=== PATIENT | female | born 1990 | race Caucasian/White ===

== ENCOUNTER 2018-05-04 16:58 | Inpatient (IN) ==
[2018-05-04] MEDS ORDERED: Morphine Inj 4 MG/ML Vial IV.PUSH ONE (17:11)
[2018-05-04] MEDS ORDERED: Sod Chloride 0.9% Inj 1,000 ML IV.SIG SCH (17:15)
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
[2018-05-04] MEDS ORDERED: Midazolam Inj 5 MG/ML 5 ML Vial IV.PUSH ONE (17:26)
[2018-05-04] MEDS ORDERED: Midazolam Inj 5 MG/ML 1 ML Vial ONE (17:42)
[2018-05-04 17:43] LABS: Baso % (Auto) 0.4 % (0.0-2.0); Eos % (Auto) 0.8 % (0.0-4.0); Hematocrit 24.9 % (35.0-46.0); Hemoglobin 8.7 gm/dL (11.6-15.3); Lymph % (Auto) 14.8 % (9.0-44.0); Mean Corpuscular HGB Conc 34.9 % (32.0-36.0); Mean Corpuscular Hemoglobin 33.5 pg (27.0-34.0); Mean Corpuscular Volume 95.9 fL (80.0-100.0); Mean Platelet Volume 9.5 fL (7.0-11.0); Mono # (Auto) 0.4 th/mm3 (0.0-0.9); Mono % (Auto) 5.7 % (0.0-8.0); Neut % (Auto) 78.3 % (16.0-70.0); Platelet Count 106 th/mm3 (150-450); Red Cell Distribution Width 14.4 % (11.6-17.2); White Blood Count 6.4 th/mm3 (4.0-11.0)
[2018-05-04 18:17] LABS: Alanine Aminotransferase 62 U/L (10-53); Albumin 2.8 g/dL (3.4-5.0); Alkaline Phosphatase 37 U/L (45-117); Anion Gap 8 meq/L (5-15); Aspartate Aminotransferase 76 U/L (15-37); Blood Urea Nitrogen 6 mg/dL (7-18); Carbon Dioxide 18.3 meq/L (21.0-32.0); Chloride 121 meq/L (98-107); Glomerular Filtration Rate Greater Than 89 mL/min (>89); Glucose,Random 59 mg/dL (74-106); Sodium 147 meq/L (136-145); Total Protein 4.7 g/dL (6.4-8.2)
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
[2018-05-04] MEDS ORDERED: Calcium Gluconate Inj 1 GM in Dextrose 5% in Water Inj 100 ML IV.SIG ONE ×2 (18:47)
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
[2018-05-04] MEDS ORDERED: Potassium Chlor 20 mEq Premix 20 MEQ/100 ML PIGGYBACK IV.SIG ONE (19:04)
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
[2018-05-04 20:32] LABS: Bacteria,Urine Rare /hpf; Bilirubin,Urine Negative (Negative); Clarity,Urine Hazy (Clear); Color,Urine Yellow (Yellw/Straw); Glucose,Urine (UA) Negative (Negative); Hyaline Casts,Urine 1 /lpf (0-3); Leukocyte Esterase,Urine Negative (Negative); Mucus,Urine Few /lpf (Occasional); Nitrite,Urine Negative (Negative); Specific Gravity,Urine 1.008 (1.002-1.035); Squamous Epithelial Cell,Urine <1 /hpf (0-5)
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
[2018-05-04] MEDS: Morphine Inj 4 MG/ML Vial IV.PUSH PRN (22:51)
[2018-05-05] MEDS: Sod Chloride 0.9% Inj 1,000 ML IV.CONT SCH ×2 (00:52→06:57)
[2018-05-05] MEDS: Morphine Inj 4 MG/ML Vial IV.PUSH PRN (02:30)
[2018-05-05] MEDS ORDERED: Metoprolol Tartrate 25 MG Tablet PO ONE (05:39)
[2018-05-05] MEDS ORDERED: Chlorhexidine Gluconate 2% 1 Pack (2 Cloths) TOPICAL ONE (05:39)
[2018-05-05] MEDS ORDERED: Acetaminophen 325 MG Tablet PO PRN (05:46)
[2018-05-05] MEDS ORDERED: Sodium Chlor 0.9% Inj 500 ML IV.SIG SCH (06:00)
[2018-05-05] MEDS: Pantoprazole Inj 40 MG Vial IV.PUSH SCH (06:17)
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
[2018-05-05] MEDS: Senna/Docusate Sodium 8.6/50 MG Tablet PO SCH ×2 (09:00→21:52)
[2018-05-05] MEDS ORDERED: ceFAZolin 1 GM Premix Inj 1 GM/50 ML FROZ.PIGGY IV.SIG ONE (09:04)
[2018-05-05] MEDS ORDERED: Glycopyrrolate Inj 1 MG/5 ML Syringe IV.PUSH ONE (09:38)
[2018-05-05] MEDS ORDERED: Lidocaine PF 1% Inj 5 ML Syringe OTHER ONE (09:38)
[2018-05-05] MEDS ORDERED: Phenylephrine/NS 1000 MCG/10ML Syringe IV.PUSH ONE (09:38)
[2018-05-05] MEDS ORDERED: Neostigmine Inj 5 MG/5 ML Syringe IV.PUSH ONE (09:38)
[2018-05-05] MEDS ORDERED: Enoxaparin Inj 40 MG/0.4 ML Syringe SQ SCH (10:00)
[2018-05-05] MEDS ORDERED: Post-op Orders (for Pharmacy) OTHER STA (10:18)
--- NOTE | 2018-05-05 10:41 | P.PNOP ---
Subjective Interval history: Transferred to PACU in stable condition Physical Exam Vital signs: Vital Signs 05/04/18 17:08 05/04/18 18:22 05/04/18 18:25 Temperature 98.2 F Pulse Rate 65 Respiratory Rate 19 16 22 Blood Pressure 93/55 L Pulse Oximetry 99 99 05/04/18 19:00 05/05/18 00:32 05/05/18 02:10 Temperature 98.5 F Pulse Rate 80 79 69 Respiratory Rate 21 20 16 Blood Pressure 99/60 L 97/64 L 98/57 L Pulse Oximetry 100 99 94 L 05/05/18 02:31 05/05/18 05:57 05/05/18 06:57 Temperature 98.3 F Pulse Rate 90 Respiratory Rate 18 20 18 Blood Pressure 105/58 L Pulse Oximetry 96 05/05/18 07:00 05/05/18 08:00 Temperature 98.4 F Pulse Rate 93 H 80 Respiratory Rate 19 Blood Pressure 110/59 L Pulse Oximetry 97 Intake & Output 05/04/18 05/05/18 05/05/18 18:59 06:59 18:59 Intake Total 1210 / 1210 700 / 700 Output Total 450 / 450 10 / 10 Balance 760 / 760 690 / 690 Weight 54.431 kg 74.5 kg Intake: IV 1210 / 1210 Calcium Gluconate Inj 1 GM In 110 / 110 D5W Inj 100 ML @ 110 mls/hr IV. SIG ONCE ONE Rx#:[id number] KCl 20 mEq Premix Inj 20 meq In 100 / 100 100 ml @ 50 mls/hr IV.SIG ONCE ONE Rx#:[id number] NS Inj 1,000 ML @ 1000 mls/hr 1000 / 1000 IV.SIG BOLUS PARVIZ Rx#:[id number] Anesthesia Amount 700 / 700 Output: Urine 450 / 450 Estimated Blood Loss Other: Date of Last Bowel Movement 05/04/18 Weight On Admission 54.43 kg Narrative: Right lower extremity: External fixator in place. Clean dry dressings intact. Good capillary refills and distal pulses - Urinary Catheter Management Indwelling Urethral Catheter Cath placed during this visit: yes Reason for continuing: Other continuation reason Insertion date: 05/05/18 Insertion time: 00:15 Results - Labs CBC & Chem 7: 05/04/18 17:25 05/04/18 17:25 Laboratory Results - last 24 hr 05/04/18 05/04/18 05/04/18 17:25 17:25 17:25 WBC 6.4 RBC 2.60 L Hgb 8.7 L Hct 24.9 L MCV 95.9 MCH 33.5 MCHC 34.9 RDW 14.4 Plt Count 106 L MPV 9.5 Neut % (Auto) 78.3 H Lymph % (Auto) 14.8 [place] % (Auto) 5.7 Eos % (Auto) 0.8 Baso % (Auto) 0.4 Neut # (Auto) 5.0 Lymph # (Auto) 1.0 [place] # (Auto) 0.4 Eos # (Auto) 0.0 Baso # (Auto) 0.0 WBC Differential . Differential Comment Auto diff final Sodium 147 H Potassium 3.0 L Chloride 121 H Carbon Dioxide 18.3 L Anion Gap 8 BUN 6 L Creatinine 0.57 Estimated GFR Greater than 89 Random Glucose 59 L Calcium 6.0 L* Prot Corrected Calcium 7.1 L* Total Bilirubin 0.4 AST 76 H ALT 62 H Alkaline Phosphatase 37 L Total Protein 4.7 L Albumin 2.8 L Beta HCG, Quant Less than 1 Urine Color Urine Clarity Urine pH Ur Specific [place] Urine Protein Urine Glucose (UA) Urine Ketones Urine Occult Blood Urine Nitrate Urine Bilirubin Urine Urobilinogen Ur Leukocyte Esterase Urine RBC Urine WBC Ur Squamous Epith Cells Urine Bacteria Hyaline Casts Urine Mucus Micro UA Comment Ur Microscopic Review Urine Culture Comments 05/04/18 20:15 WBC RBC Hgb Hct MCV MCH MCHC RDW Plt Count MPV Neut % (Auto) Lymph % (Auto) [place] % (Auto) Eos % (Auto) Baso % (Auto) Neut # (Auto) Lymph # (Auto) [place] # (Auto) Eos # (Auto) Baso # (Auto) WBC Differential Differential Comment Sodium Potassium Chloride Carbon Dioxide Anion Gap BUN Creatinine Estimated GFR Random Glucose Calcium Prot Corrected Calcium Total Bilirubin AST ALT Alkaline Phosphatase Total Protein Albumin Beta HCG, Quant Urine Color Yellow Urine Clarity Hazy H Urine pH 6.0 Ur Specific [place] 1.008 Urine Protein Negative Urine Glucose (UA) Negative Urine Ketones Negative Urine Occult Blood Moderate H Urine Nitrate Negative Urine Bilirubin Negative Urine Urobilinogen Less than 2 Ur Leukocyte Esterase Negative Urine RBC 9 H Urine WBC 2 Ur Squamous Epith Cells <1 Urine Bacteria Rare H Hyaline Casts 1 Urine Mucus Few H Micro UA Comment Culture not ind Ur Microscopic Review Not Reportable Urine Culture Comments Culture not ind - Imaging Impressions Ankle X-Ray 05/04/18 17:05 CONCLUSION: Comminuted intra-articular fracture of the distal left tibia with medial subluxation and displaced and angulated bimalleolar fractures. Cervical Spine CT 05/04/18 17:05 CONCLUSION: Negative cervical spine CT examination. Chest X-Ray 05/04/18 17:05 CONCLUSION: No acute cardiopulmonary process. Head CT 05/04/18 17:05 CONCLUSION: 1. No acute intracranial abnormalities. . Lumbar Spine CT 05/04/18 17:05 CONCLUSION: 1. Fracture at L3 including the posterior inferior left lateral aspect of the L3 vertebral body with 4 mm of retropulsion of the fragment causing impression on the anterior left side of thecal sac and left neural foramina at this level. 2. Fracturing through the left L3 pedicle and right pars interarticularis region extending into the superior aspect of the spinous processes and transverse processes bilaterally at L3. Pelvis CT 05/04/18 17:05 CONCLUSION: 1. Fractures of the right superior and inferior pubic ramus as above and nondisplaced hairline fracture of left ala. Tibia/Fibula X-Ray 05/04/18 17:05 CONCLUSION: No evidence of recent bony injury. Hip X-Ray 05/04/18 17:10 CONCLUSION: Fractures of the right superior and inferior pubic rami with mild displacement. Intrauterine device present. Hip X-Ray 05/04/18 17:10 CONCLUSION: No acute fracture or dislocation at the left hip. Intrauterine device present. Right pubic rami fractures noted. Ankle CT 05/04/18 17:56 CONCLUSION: 1. Comminuted intra-articular fracture of the tibial plafond with posterior subluxation of the distal posterior aspect. Fractures extend through the medial and lateral malleoli. Ankle X-Ray 05/04/18 18:06 CONCLUSION: Comminuted fracturing of the distal tibia with anterior displacement of the talus in relationship to the main portion of the tibia. Lumbar Spine MRI 05/04/18 19:53 CONCLUSION: 1. Fracture of the posterior inferior left corner of L3 with mild retropulsion resulting in mild to moderate left lateral recess stenosis and left foraminal encroachment. On the left side fracture extends through L3 pedicle and on the right through the pars region with bilateral transverse process fractures present at L3. No subluxation. Assessment and Plan - Assessment and Plan Left tibial pilon fracture status post external fixation POD 0 Nonweightbearing left lower extremity Ice and elevate Pin care twice daily We will plan on surgery first of next week when swelling is improved Incentive spirometry
--- NOTE | 2018-05-05 10:51 | XR ---
EXAM DATE: 05/05/2018 10:47 AM EST AGE/SEX: 28 years / Female INDICATIONS: Closed reduction external fixation of left ankle. CLINICAL DATA: This is the patient's initial encounter. Patient reports that signs and symptoms have been present for 1 day and indicates a pain score of Nonresponsive. MEDICAL/SURGICAL HISTORY: Non-responsive. Non-responsive. COMPARISON: [facility] [place], CT ANKLE LEFT W/O CONTRAST, 05/04/2018. . FINDINGS: 2 views of the left ankle were performed following placement of an external fixator. Good fracture fragment apposition and latter day of anatomic alignment is noted following closed red uction. CONCLUSION: Status post closed reduction and placement of external fixator with latter day of anatomic alignment of the fracture fragments. Electronically signed by: Venkatesh Lo MD 05/05/2018 10:49 AM EST
[2018-05-05] MEDS: Ketorolac Inj 30 MG/ML (IVP) Vial IV.PUSH SCH ×2 (11:14→19:32)
[2018-05-05] MEDS ORDERED: fentaNYL Citrate Inj 100 MCG/2 ML Ampul ONE (12:10)
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
[2018-05-05 16:06] LABS: Baso % (Auto) 0.4 % (0.0-2.0); Eos # (Auto) 0.1 th/mm3 (0.0-0.4); Eos % (Auto) 1.7 % (0.0-4.0); Hematocrit 27.4 % (35.0-46.0); Hemoglobin 9.6 gm/dL (11.6-15.3); Lymph # (Auto) 1.3 th/mm3 (1.0-4.8); Lymph % (Auto) 28.9 % (9.0-44.0); Mean Corpuscular HGB Conc 35.1 % (32.0-36.0); Mean Corpuscular Hemoglobin 33.7 pg (27.0-34.0); Mean Corpuscular Volume 95.9 fL (80.0-100.0); Mean Platelet Volume 10.1 fL (7.0-11.0); Mono # (Auto) 0.5 th/mm3 (0.0-0.9); Mono % (Auto) 11.5 % (0.0-8.0); Neut # (Auto) 2.5 th/mm3 (1.8-7.7); Neut % (Auto) 57.5 % (16.0-70.0); Platelet Count 106 th/mm3 (150-450); Red Blood Count 2.86 mil/mm3 (4.00-5.30); Red Cell Distribution Width 14.2 % (11.6-17.2); White Blood Count 4.4 th/mm3 (4.0-11.0)
--- NOTE | 2018-05-05 16:20 | OTSOAPIP ---
RECEIVED OCCUPATIONAL THERAPY ORDERS. PATIENT IS S/P LEFT DISTAL FIBULA AND TIBIA CLOSED REDUCTION WITH EXTERNAL FIXATION THIS MORNING. SHE ALSO HAS RIGHT SUPERIOR RAMI FRACTURE TO BE TREATED CONSERVATIVELY. PATIENT IS PENDING SURGICAL REPAIR OF L3 BURST FRACTURE AND IS ON LOG ROLL PRECAUTIONS. WILL PLAN TO HOLD EVALUATION UNTIL POST SURGERY. INTERDISCIPLINARY COMMUNICATION: REVIEWED ELECTRONIC MEDICAL RECORD Therapist: Arlyn Vick OTR/L Signature on file
[2018-05-05 16:49] LABS: Anion Gap 5 meq/L (5-15); Blood Urea Nitrogen 7 mg/dL (7-18); Calcium 7.6 mg/dL (8.5-10.1); Carbon Dioxide 25.9 meq/L (21.0-32.0); Chloride 111 meq/L (98-107); Glomerular Filtration Rate Greater Than 89 mL/min (>89); Glucose,Random 83 mg/dL (74-106); Potassium 4.3 meq/L (3.5-5.1); Sodium 142 meq/L (136-145)
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
[2018-05-05] MEDS: buPROPion 100 MG ER 12 HR Tablet PO SCH ×2 (19:31→21:53)
[2018-05-05] MEDS: Calcium/Vitamin D 250/125 MG Tablet PO SCH ×2 (22:00→23:54)
[2018-05-06] MEDS: Ketorolac Inj 30 MG/ML (IVP) Vial IV.PUSH SCH ×3 (02:55→18:18)
[2018-05-06 04:08] LABS: Baso % (Auto) 0.4 % (0.0-2.0); Eos # (Auto) 0.1 th/mm3 (0.0-0.4); Eos % (Auto) 1.2 % (0.0-4.0); Hematocrit 26.6 % (35.0-46.0); Hemoglobin 9.2 gm/dL (11.6-15.3); Lymph # (Auto) 1.1 th/mm3 (1.0-4.8); Mean Corpuscular HGB Conc 34.8 % (32.0-36.0); Mean Corpuscular Hemoglobin 33.3 pg (27.0-34.0); Mean Corpuscular Volume 95.9 fL (80.0-100.0); Mean Platelet Volume 9.7 fL (7.0-11.0); Mono # (Auto) 0.4 th/mm3 (0.0-0.9); Mono % (Auto) 9.5 % (0.0-8.0); Neut % (Auto) 64.9 % (16.0-70.0); Platelet Count 98 th/mm3 (150-450); Red Blood Count 2.77 mil/mm3 (4.00-5.30); Red Cell Distribution Width 13.9 % (11.6-17.2); White Blood Count 4.7 th/mm3 (4.0-11.0)
[2018-05-06 04:28] LABS: Anion Gap 7 meq/L (5-15); Blood Urea Nitrogen 8 mg/dL (7-18); Calcium 7.6 mg/dL (8.5-10.1); Carbon Dioxide 25.2 meq/L (21.0-32.0); Chloride 109 meq/L (98-107); Glomerular Filtration Rate Greater Than 89 mL/min (>89); Glucose,Random 86 mg/dL (74-106); Potassium 3.9 meq/L (3.5-5.1); Sodium 141 meq/L (136-145)
[2018-05-06] MEDS: Pantoprazole Inj 40 MG Vial IV.PUSH SCH (05:49)
--- NOTE | 2018-05-06 07:25 | P.PNOP ---
Subjective Interval history: Doing well. Lying comfortably in bed. Complains of low back pain and left ankle pain Physical Exam Vital signs: Vital Signs 05/05/18 08:00 05/05/18 10:37 05/05/18 10:45 Temperature 98.4 F 98.3 F Pulse Rate 65 91 H 71 Respiratory Rate 19 15 12 Blood Pressure 110/59 L 101/55 L 100/59 L Pulse Oximetry 97 100 100 05/05/18 11:00 05/05/18 11:15 05/05/18 11:30 Temperature Pulse Rate 61 57 L 62 Respiratory Rate 12 12 12 Blood Pressure 100/64 95/53 L 96/54 L Pulse Oximetry 100 100 100 05/05/18 11:45 05/05/18 12:00 05/05/18 12:15 Temperature 99 F 98.0 F Pulse Rate 62 83 68 Respiratory Rate 12 19 14 Blood Pressure 103/59 L 100/53 L 91/54 L Pulse Oximetry 100 100 100 05/05/18 16:00 05/05/18 20:00 05/05/18 20:02 Temperature 99.8 F H 99.8 F H Pulse Rate 80 75 Respiratory Rate 19 16 18 Blood Pressure 87/52 L 100/57 L Pulse Oximetry 95 95 05/05/18 22:24 05/06/18 00:00 05/06/18 00:02 Temperature 98.2 F Pulse Rate 77 73 Respiratory Rate 18 16 Blood Pressure 94/59 L Pulse Oximetry 95 05/06/18 03:28 05/06/18 03:59 05/06/18 04:00 Temperature 98.9 F Pulse Rate 80 95 H Respiratory Rate 18 17 Blood Pressure 102/53 L Pulse Oximetry 96 Intake & Output 05/05/18 05/06/18 05/06/18 18:59 06:59 18:59 Intake Total 700 / 700 200 / 200 Output Total 1425 / 1425 Balance 690 / 690 -1225 / -1225 Weight 67.7 kg Intake: Oral 200 / 200 Anesthesia Amount 700 / 700 Output: Estimated Blood Loss Urine Amount (Catheter) 1425 / 1425 Indwelling Urethral Catheter 1425 / 1425 Other: Date of Last Bowel Movement 05/04/18 05/04/18 Narrative: Left leg external fixator in place. She wiggles her toes. Sensation appears to be almost normal. Mild swelling - Urinary Catheter Management Indwelling Urethral Catheter Cath placed during this visit: yes Reason for continuing: Other continuation reason Insertion date: 05/05/18 Insertion time: 00:15 Results - Labs CBC & Chem 7: 05/06/18 03:25 05/06/18 03:25 Laboratory Results - last 24 hr 05/04/18 05/05/18 05/05/18 17:25 15:04 15:04 WBC 4.4 RBC 2.86 L Hgb 9.6 L Hct 27.4 L MCV 95.9 MCH 33.7 MCHC 35.1 RDW 14.2 Plt Count 106 L MPV 10.1 Prelim Diff (Auto) Neut % (Auto) 57.5 Lymph % (Auto) 28.9 [place] % (Auto) 11.5 H Eos % (Auto) 1.7 Baso % (Auto) 0.4 Neut # (Auto) 2.5 Lymph # (Auto) 1.3 [place] # (Auto) 0.5 Eos # (Auto) 0.1 Baso # (Auto) 0.0 WBC Differential . Differential Comment Auto diff final Sodium 142 Potassium 4.3 D Chloride 111 H D Carbon Dioxide 25.9 Anion Gap 5 BUN 7 Creatinine 0.64 Estimated GFR Greater than 89 Random Glucose 83 Calcium 7.6 L D Beta HCG, Quant Less than 1 05/06/18 05/06/18 03:25 03:25 WBC 4.7 RBC 2.77 L Hgb 9.2 L Hct 26.6 L MCV 95.9 MCH 33.3 MCHC 34.8 RDW 13.9 Plt Count 98 L MPV 9.7 Prelim Diff (Auto) Slide review pending Neut % (Auto) 64.9 Lymph % (Auto) 24.0 [place] % (Auto) 9.5 H Eos % (Auto) 1.2 Baso % (Auto) 0.4 Neut # (Auto) 3.0 Lymph # (Auto) 1.1 [place] # (Auto) 0.4 Eos # (Auto) 0.1 Baso # (Auto) 0.0 WBC Differential Differential Comment . Sodium 141 Potassium 3.9 Chloride 109 H Carbon Dioxide 25.2 Anion Gap 7 BUN 8 Creatinine 0.58 Estimated GFR Greater than 89 Random Glucose 86 Calcium 7.6 L Beta HCG, Quant - Imaging Impressions Ankle X-Ray 11/21/18 00:00 CONCLUSION: Status post closed reduction and placement of external fixator with jehovah's witness of anatomic alignment of the fracture fragments. Assessment and Plan - Assessment and Plan Left tibial pilon fracture Surgery: Status post external fixation POD 1 PLAN: Nonweightbearing left lower extremity Ice and elevate Pin care twice daily We will plan on surgery first of next week when swelling is improved Incentive spirometry Orthopedically stable
[2018-05-06 07:30] LABS: Platelet Morphology Normal (Normal)
[2018-05-06] MEDS: Senna/Docusate Sodium 8.6/50 MG Tablet PO SCH ×2 (08:13→20:57)
[2018-05-06] MEDS: Calcium/Vitamin D 250/125 MG Tablet PO SCH ×3 (08:13→18:13)
[2018-05-06] MEDS: buPROPion 100 MG ER 12 HR Tablet PO SCH ×2 (08:13→20:58)
[2018-05-06] MEDS ORDERED: Enoxaparin Inj 40 MG/0.4 ML Syringe SQ SCH ×3 (09:00→10:00)
[2018-05-06] MEDS: Enoxaparin Inj 30 MG/0.3 ML Syringe SQ SCH ×3 (10:06→22:10)
--- NOTE | 2018-05-06 11:10 | OTSOAPIP ---
TIME SESSION COMPLETED: 11 AM SPOKE WITH GLORIA PITTS POSSIBLE BACK SURGERY 05/07/18. HOLD OT EVALUATION. JT Therapist: Shanel Garcia Signature on file
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
--- NOTE | 2018-05-06 12:43 | P.PNNS ---
Subjective Interval history: Pt awake and alert. Complains of low back pain. Pt more alert today and states she wants to proceed with surgery tomorrow. No radiculopathy in LEs. LLE in external fixator. <Javon Cortez - Last Filed: 05/06/18 12:37> Physical Exam Vital signs: Vital Signs 05/05/18 16:00 05/05/18 20:00 05/05/18 20:02 Temperature 99.8 F H 99.8 F H Pulse Rate 80 75 Respiratory Rate 19 16 18 Blood Pressure 87/52 L 100/57 L Pulse Oximetry 95 95 05/05/18 22:24 05/06/18 00:00 05/06/18 00:02 Temperature 98.2 F Pulse Rate 77 73 Respiratory Rate 18 16 Blood Pressure 94/59 L Pulse Oximetry 95 05/06/18 03:28 05/06/18 03:59 05/06/18 04:00 Temperature 98.9 F Pulse Rate 80 95 H Respiratory Rate 18 17 Blood Pressure 102/53 L Pulse Oximetry 96 05/06/18 08:00 05/06/18 12:00 Temperature 98.2 F 98.5 F Pulse Rate 86 93 H Respiratory Rate 16 16 Blood Pressure 103/53 L 106/67 Pulse Oximetry 97 97 Intake & Output 05/05/18 05/06/18 05/06/18 18:59 06:59 18:59 Intake Total 700 / 700 200 / 200 1000 / 1000 Output Total 1425 / 1425 Balance 690 / 690 -1225 / -1225 1000 / 1000 Weight 67.7 kg Intake: IV 1000 / 1000 LR 1000 mL Inj 1,000 ML @ 50 1000 / 1000 mls/hr IV.CONT .Q20H [facility] Rx#: [id number] Oral 200 / 200 Anesthesia Amount 700 / 700 Output: Estimated Blood Loss Urine Amount (Catheter) 1425 / 1425 Indwelling Urethral Catheter 1425 / 1425 Other: Date of Last Bowel Movement 05/04/18 05/04/18 05/05/18 - Constitutional no acute distress, average body habitus, cooperative - Routine HEENT Exam Head: Absent: atraumatic (small laceration right forehead clean and dry. Right periorbital ecchymosis.) Eye: Present: PERRL (Pupils 3mm bilaterally reactive bilaterally.). Absent: conjunctival icterus - Routine Respiratory Exam Present: CTA bilaterally. Absent: respiratory distress, rhonchi, wheezes - Routine Cardiovascular Exam Present: RRR, S1, S2. Absent: murmur - Routine Abdominal Exam Present: soft, normoactive bowel sounds. Absent: distended, firm - Routine Extremities Exam Comments: External fixator LLE. - Routine Skin Exam Absent: cyanosis, erythema - Routine Neurological Exam Present: alert, normal speech. Absent: altered mental status, moving all extremities (LLE in external fixator. Moves UEs and RLE well.), facial asymmetry Pupils 3mm bilaterally reactive bilaterally. - Routine Psychiatric Exam Present: normal affect, cooperative. Absent: anxious, agitated - Urinary Catheter Management Indwelling Urethral Catheter Cath placed during this visit: yes Reason for continuing: Other continuation reason Insertion date: 05/05/18 Insertion time: 00:15 <Javon Cortez - Last Filed: 05/06/18 12:37> Vital signs: Vital Signs 05/09/18 00:00 05/09/18 01:30 05/09/18 04:00 Temperature 99.1 F 97.8 F Pulse Rate 103 H 88 Respiratory Rate 18 18 19 Blood Pressure 101/59 L 92/53 L Pulse Oximetry 97 95 05/09/18 08:00 05/09/18 12:15 05/09/18 14:19 Temperature 98.3 F 98.4 F Pulse Rate 73 106 H 89 Respiratory Rate 16 18 Blood Pressure 94/51 L 94/56 L Pulse Oximetry 96 97 05/09/18 14:45 05/09/18 16:00 05/09/18 16:16 Temperature 98.5 F 98.5 F Pulse Rate 89 81 Respiratory Rate 16 16 17 Blood Pressure 98/56 L 100/58 L Pulse Oximetry 98 95 05/09/18 19:20 Temperature 98.2 F Pulse Rate 86 Respiratory Rate 17 Blood Pressure 111/72 Pulse Oximetry 96 Intake & Output 05/09/18 05/09/18 05/10/18 06:59 18:59 06:59 Intake Total 500 / 500 400 / 400 Output Total 875 / 875 20 / 20 Balance -375 / -375 380 / 380 Intake: IV 100 / 100 Oral 400 / 400 Intake (Blood Product) Amt 400 / 400 Rbc As-3 Leukoreduced Unit 400 / 400 [id number] Output: Urine 875 / 875 Wound Drainage # 1 Back ROBERT Drain Other: # Voids 3 Date of Last Bowel Movement 05/05/18 05/05/18 - Urinary Catheter Management Indwelling Urethral Catheter Cath placed during this visit: no <Zack Cabrera - Last Filed: 05/09/18 21:21> Assessment and Plan - Assessment (1) Fracture of lumbar vertebra without spinal cord injury Code(s): S32.009A - Unspecified fracture of unspecified lumbar vertebra, initial encounter for closed fracture Status: Acute Qualifiers: Encounter type: initial encounter Fracture type: closed Qualified Code(s) : S32.009A - Unspecified fracture of unspecified lumbar vertebra, initial encounter for closed fracture (2) Fracture dislocation of left ankle Code(s): S82.892A - Other fracture of left lower leg, initial encounter for closed fracture Status: Acute Qualifiers: Encounter type: initial encounter Fracture type: closed Qualified Code(s) : S82.892A - Other fracture of left lower leg, initial encounter for closed fracture (3) Fracture, pelvis closed Code(s): S32.9XXA - Fracture of unspecified parts of lumbosacral spine and pelvis, initial encounter for closed fracture Status: Acute Qualifiers: Encounter type: initial encounter Pelvic bone location: pubis Sublocation of pubis: unspecified portion of pubis Laterality: right Qualified Code(s): S32.501A - Unspecified fracture of right pubis, initial encounter for closed fracture (4) Acute hypokalemia Code(s): E87.6 - Hypokalemia Status: Acute (5) Hypocalcemia Code(s): E83.51 - Hypocalcemia Status: Acute - Plan I again reviewed the clinical and radiological findings Cervical Spine CT 05/04/18 17:05 CONCLUSION: Negative cervical spine CT examination. Chest X-Ray 05/04/18 17:05 CONCLUSION: No acute cardiopulmonary process. Head CT 05/04/18 17:05 CONCLUSION: 1. No acute intracranial abnormalities. . Lumbar Spine CT 05/04/18 17:05 CONCLUSION: 1. Fracture at L3 including the posterior inferior left lateral aspect of the L3 vertebral body with 4 mm of retropulsion of the fragment causing impression on the anterior left side of thecal sac and left neural foramina at this level. 2. Fracturing through the left L3 pedicle and right pars interarticularis region extending into the superior aspect of the spinous processes and transverse processes bilaterally at L3. Pelvis CT 05/04/18 17:05 CONCLUSION: 1. Fractures of the right superior and inferior pubic ramus as above and nondisplaced hairline fracture of left ala. Tibia/Fibula X-Ray 05/04/18 17:05 CONCLUSION: No evidence of recent bony injury. Hip X-Ray 05/04/18 17:10 CONCLUSION: No acute fracture or dislocation at the left hip. Intrauterine device present. Right pubic rami fractures noted. Ankle CT 05/04/18 17:56 CONCLUSION: 1. Comminuted intra-articular fracture of the tibial plafond with posterior subluxation of the distal posterior aspect. Fractures extend through the medial and lateral malleoli. Ankle X-Ray 05/04/18 18:06 CONCLUSION: Comminuted fracturing of the distal tibia with anterior displacement of the talus in relationship to the main portion of the tibia. Neuro: Continue neuro checks in a serial fashion. L 3 fracture. I am concerned about her unstable loose bone fragment causing impingement on the exiting nerve root. I again recommend consideration to surgical decompression with possible arthrodesis and stabilization using pedicle screws. Orville discussed the [id number] details of the surgical procedure, its indications, alternatives, risks, and potential complications. Risks and potential complications include, but are not limited to, infection, blood loss, CSF leak, partial or complete loss of sight in one or both eyes, paresis, paralysis, permanent pain or difficulty swallowing, loss of bowel or bladder function, complications from anesthesia, blood clot, stroke, myocardial infarction, or even . The possibility of nonoperative treatment has been offered. Pulmonary: Continue aggressive pulmonary toilette, nasotracheal suction, and breathing treatments with nebulizers. Left ankle fracture. Status post open reduction and external fixation, she will need further surgery next week once her swelling has decreased Pelvic fractures non operative treatment per orthopedics daily PT and OT Renal: monitor closely urine output, BUN and creatinine Endocrine: Monitor serial Acu checks and SSI as needed in detail ID Continue to monitor for signs of infection Continue Protonix for stress ulcer prophylaxis Continue Shady hose and SCD's for DVT prophylaxis/ Lovenox Further recommendations will be provided depending on the patient's clinical evaluation and follow up studies. Pt and mother at bedside state they would like to proceed with surgery tomorrow with Dr. Cabrera. She will be made NPO. <Javon Cortez - Last Filed: 05/06/18 12:37>
[2018-05-07] MEDS: Ketorolac Inj 30 MG/ML (IVP) Vial IV.PUSH SCH (02:32)
[2018-05-07] MEDS ORDERED: Metoprolol Tartrate 25 MG Tablet PO ONE (04:56)
[2018-05-07] MEDS ORDERED: Chlorhexidine Gluconate 2% 1 Pack (2 Cloths) TOPICAL ONE (04:56)
[2018-05-07] MEDS ORDERED: Sodium Chlor 0.9% Inj 500 ML IV.SIG SCH (05:00)
[2018-05-07] MEDS: Pantoprazole Inj 40 MG Vial IV.PUSH SCH (05:57)
[2018-05-07] MEDS ORDERED: Gelatin Size 100 Topical Foam ONE (07:02)
[2018-05-07] MEDS ORDERED: Bupivacaine/Epinephrine PF Inj 0.5% 30 ML Vial ONE (07:06)
[2018-05-07] MEDS ORDERED: ceFAZolin 1 GM Premix Inj 2 GM/100 ML FROZ.PIGGY IV.SIG ONE (07:06)
[2018-05-07] MEDS ORDERED: Thrombin Topical Soln 5,000 UNIT Vial TOPICAL ONE ×2 (07:06→07:30)
--- NOTE | 2018-05-07 07:16 | P.PNOP ---
Subjective Interval history: No complaints. No significant leg pain. External fixator in place. Patient n.p.o. anticipating surgical treatment of her lumbar spine Physical Exam Vital signs: Vital Signs 05/06/18 08:00 05/06/18 12:00 05/06/18 16:00 Temperature 98.2 F 98.5 F 98.1 F Pulse Rate 86 93 H 86 Respiratory Rate 16 16 16 Blood Pressure 103/53 L 106/67 102/57 L Pulse Oximetry 97 97 95 05/06/18 19:00 05/06/18 20:00 05/06/18 20:03 Temperature 98.0 F Pulse Rate 83 92 H Respiratory Rate 18 16 Blood Pressure 104/55 L Pulse Oximetry 98 05/06/18 22:09 05/06/18 23:58 05/07/18 00:00 Temperature 98.4 F Pulse Rate 83 83 Respiratory Rate 18 16 Blood Pressure 96/54 L Pulse Oximetry 96 05/07/18 01:58 05/07/18 03:30 05/07/18 04:00 Temperature 99.0 F Pulse Rate 82 Respiratory Rate 17 18 16 Blood Pressure 95/57 L Pulse Oximetry 97 05/07/18 04:01 05/07/18 06:26 Temperature Pulse Rate 79 Respiratory Rate 18 Blood Pressure Pulse Oximetry Intake & Output 05/06/18 05/07/18 05/07/18 18:59 06:59 18:59 Intake Total 1000 / 1000 1000 / 1000 Output Total 1600 / 1600 1425 / 1425 Balance -600 / -600 -425 / -425 Intake: IV 1000 / 1000 1000 / 1000 LR 1000 mL Inj 1,000 ML @ 50 1000 / 1000 1000 / 1000 mls/hr IV.CONT .Q[facility] Rx#: [id number] Output: Urine Amount (Catheter) 1600 / 1600 1425 / 1425 Indwelling Urethral Catheter 1600 / 1600 1425 / 1425 Other: Date of Last Bowel Movement 05/05/18 05/05/18 Narrative: External fixation in place. Sensation both legs normal. Mild swelling of ankle. Wiggles her toes without significant pain - Urinary Catheter Management Indwelling Urethral Catheter Cath placed during this visit: yes Reason for continuing: Other continuation reason Insertion date: 05/05/18 Insertion time: 00:15 Results - Labs CBC & Chem 7: 05/06/18 03:25 05/06/18 03:25 Laboratory Results - last 24 hr 05/06/18 03:25 WBC Differential . Diff Scan Auto diff confirmed Platelet Estimate Low L Platelet Morphology Normal Assessment and Plan - Assessment and Plan Left tibial pilon fracture Left L3 pedicle fracture/inferior corner L3 vertebral body fracture/foraminal stenosis Surgery: Status post external fixation POD 2 PLAN: Nonweightbearing left lower extremity Ice and elevate Pin care twice daily We will plan on surgery first of next week when swelling is improved Incentive spirometry Orthopedically stable Possible neurosurgical treatment today
[2018-05-07] MEDS: Morphine Inj 4 MG/ML Vial IV.PUSH PRN ×3 (07:29→13:25)
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
[2018-05-07] MEDS: buPROPion 100 MG ER 12 HR Tablet PO SCH ×2 (10:57→21:29)
[2018-05-07] MEDS: Senna/Docusate Sodium 8.6/50 MG Tablet PO SCH ×2 (10:57→21:29)
[2018-05-07] MEDS: Calcium/Vitamin D 250/125 MG Tablet PO SCH ×3 (10:57→21:55)
[2018-05-07] MEDS: Enoxaparin Inj 30 MG/0.3 ML Syringe SQ SCH ×2 (10:58→21:56)
--- NOTE | 2018-05-07 14:50 | OTSOAPIP ---
TIME SESSION COMPLETED: TREATMENT TIME: 0 MINS. CHART REVIEWED. ATTEMPTED TO SEE FOR EVALUATION, HOWEVER PATIENT HAVING SURGERY ON SPINE. WILL FOLLOW NEXT DAY. Therapist: Corrina Davidson Signature on file
[2018-05-07] MEDS ORDERED: fentaNYL Citrate Inj 250 MCG/5 ML Ampul ONE (16:43)
[2018-05-07] MEDS ORDERED: Calcium Chloride Inj 1 GM/10 ML Syringe ONE (18:33)
[2018-05-07] MEDS ORDERED: Propofol Inj 500 MG/50 ML Vial ONE (19:24)
[2018-05-07] MEDS ORDERED: Bisacodyl 10 MG Supp RECTAL PRN (20:09)
--- NOTE | 2018-05-07 20:13 | P.OP ---
Preoperative Diagnosis: L3 fracture Postoperative Diagnosis: L3 fracture Date of procedure: 05/07/18 Procedure: open reduction of L3 fracture, L3-4 laminectomy, mesiofacetectomy, foraminotomy , microsurgical resection of the disk Surgeon: Zack Cabrera MD
[2018-05-07] MEDS ORDERED: *Meperidine Inj 25 MG/ML Vial PERIprocedural Use ONLY ONE (20:20)
--- NOTE | 2018-05-07 20:27 | XR ---
EXAM DATE: 05/07/2018 8:24 PM EST AGE/SEX: 28 years / Female INDICATIONS: L3-L4 laminectomy level localization. CLINICAL DATA: This is the patient's subsequent encounter. Patient reports that signs and symptoms h ave been present for 1 day and indicates a pain score of Nonresponsive. MEDICAL/SURGICAL HISTORY: Non-responsive. Non-responsive. COMPARISON: No prior exams available for comparison. FINDINGS: Coned-down crosstable lateral views of the lower lumbar spine. The L5-S1 junction cannot be definitiv tania visualized. Assuming the partially imaged superior endplate at the bottom of the image reflects S 1, the radiopaque marker is at the L3 level. Vertebral body heights are intact. Sagittal alignment is maintained. CONCLUSION: 1. Intraoperative localization, as above. Electronically signed by: Jaxon Milligan MD 05/07/2018 8:26 PM EST
[2018-05-07] MEDS ORDERED: fentaNYL Citrate Inj 100 MCG/2 ML Ampul ONE (20:32)
[2018-05-07] MEDS: Gabapentin 300 MG Capsule PO SCH (21:56)
[2018-05-08] MEDS: ceFAZolin 2 GM Premix Inj 2 GM/50 ML PIGGYBACK IV.SIG SCH ×3 (00:25→18:10)
[2018-05-08] MEDS: Morphine Inj 4 MG/ML Vial IV.PUSH PRN ×2 (00:55→13:15)
[2018-05-08 05:06] LABS: Baso % (Auto) 0.1 % (0.0-2.0); Eos % (Auto) 0.1 % (0.0-4.0); Hematocrit 22.4 % (35.0-46.0); Hemoglobin 7.9 gm/dL (11.6-15.3); Lymph # (Auto) 0.4 th/mm3 (1.0-4.8); Mean Corpuscular HGB Conc 35.3 % (32.0-36.0); Mean Corpuscular Hemoglobin 32.9 pg (27.0-34.0); Mean Corpuscular Volume 93.3 fL (80.0-100.0); Mean Platelet Volume 9.5 fL (7.0-11.0); Mono # (Auto) 0.2 th/mm3 (0.0-0.9); Mono % (Auto) 5.7 % (0.0-8.0); Neut # (Auto) 3.1 th/mm3 (1.8-7.7); Neut % (Auto) 83.1 % (16.0-70.0); Platelet Count 113 th/mm3 (150-450); Red Cell Distribution Width 13.5 % (11.6-17.2); White Blood Count 3.7 th/mm3 (4.0-11.0)
[2018-05-08] MEDS: Pantoprazole Inj 40 MG Vial IV.PUSH SCH (05:30)
[2018-05-08 05:35] LABS: Anion Gap 8 meq/L (5-15); Blood Urea Nitrogen 8 mg/dL (7-18); Carbon Dioxide 26.1 meq/L (21.0-32.0); Chloride 105 meq/L (98-107); Glomerular Filtration Rate Greater Than 89 mL/min (>89); Glucose,Random 111 mg/dL (74-106); Potassium 4.5 meq/L (3.5-5.1); Sodium 139 meq/L (136-145)
--- NOTE | 2018-05-08 08:35 | P.PNOP ---
Subjective Interval history: s/p exfix left ankle doing well. no changes. Physical Exam Vital signs: Vital Signs 05/07/18 20:18 05/07/18 20:30 05/07/18 20:45 Temperature 97.6 F 97.7 F 97.7 F Pulse Rate 105 H 85 109 H Respiratory Rate 14 14 14 Blood Pressure 112/53 L 114/66 118/67 Pulse Oximetry 96 94 L 94 L 05/07/18 21:00 05/07/18 21:42 05/07/18 22:57 Temperature 97.7 F 98.2 F Pulse Rate 95 H 65 Respiratory Rate 14 14 16 Blood Pressure 98/60 L 110/62 Pulse Oximetry 92 L 95 05/08/18 00:00 05/08/18 01:32 05/08/18 04:00 Temperature 97.7 F 98.0 F Pulse Rate 88 85 Respiratory Rate 19 16 17 Blood Pressure 95/52 L 99/55 L Pulse Oximetry 98 95 05/08/18 04:24 05/08/18 05:52 Temperature Pulse Rate 90 Respiratory Rate 16 Blood Pressure Pulse Oximetry Intake & Output 05/07/18 05/08/18 05/08/18 18:59 06:59 18:59 Intake Total 2650 / 2650 Output Total 1770 / 1770 Balance 880 / 880 Weight 68.2 kg Intake: IV 1050 / 1050 LR 1000 mL Inj 1,000 ML @ 50 1000 / 1000 mls/hr IV.CONT .Q20H [facility] Rx#: [id number] Ancef 2 GM Premix Inj 2 gm In 50 / 50 50 ml @ 100 mls/hr IV.SIG Q8H [facility] Rx#:[id number] Anesthesia Amount 1600 / 1600 Output: Estimated Blood Loss 300 / 300 Urine Amount (Catheter) 1425 / 1425 Indwelling Urethral Catheter 1425 / 1425 Wound Drainage 45 / 45 # 1 Back ROBERT Drain 45 / 45 Other: Date of Last Bowel Movement 05/05/18 Narrative: LLE: 2+ swelling. +exfix. pin sites clean. nvi - Urinary Catheter Management Indwelling Urethral Catheter Cath placed during this visit: yes Reason for continuing: Acute urinary retention Insertion date: 05/05/18 Insertion time: 00:15 Results - Labs CBC & Chem 7: 05/08/18 04:19 05/08/18 04:19 Laboratory Results - last 24 hr 05/07/18 05/07/18 05/08/18 18:14 18:14 04:19 WBC 3.7 L RBC 2.40 L Hgb 7.9 L Hct 22.4 L MCV 93.3 MCH 32.9 MCHC 35.3 RDW 13.5 Plt Count 113 L MPV 9.5 Neut % (Auto) 83.1 H Lymph % (Auto) 11.0 [place] % (Auto) 5.7 Eos % (Auto) 0.1 Baso % (Auto) 0.1 Neut # (Auto) 3.1 Lymph # (Auto) 0.4 L [place] # (Auto) 0.2 Eos # (Auto) 0.0 Baso # (Auto) 0.0 WBC Differential . Differential Comment Auto diff final Sodium Potassium Chloride Carbon Dioxide Anion Gap BUN Creatinine Estimated GFR Random Glucose Calcium Blood Type A Positive Antibody Screen Negative MTS Gel Crossmatch See Detail 05/08/18 04:19 WBC RBC Hgb Hct MCV MCH MCHC RDW Plt Count MPV Neut % (Auto) Lymph % (Auto) [place] % (Auto) Eos % (Auto) Baso % (Auto) Neut # (Auto) Lymph # (Auto) [place] # (Auto) Eos # (Auto) Baso # (Auto) WBC Differential Differential Comment Sodium 139 Potassium 4.5 Chloride 105 Carbon Dioxide 26.1 Anion Gap 8 BUN 8 Creatinine 0.58 Estimated GFR Greater than 89 Random Glucose 111 H Calcium 8.0 L Blood Type Antibody Screen MTS Gel Crossmatch - Imaging Impressions Lumbar Spine X-Ray 05/07/18 00:00 CONCLUSION: 1. Intraoperative localization, as above. Assessment and Plan - Assessment and Plan Left tibial pilon fracture Left L3 pedicle fracture/inferior corner L3 vertebral body fracture/foraminal stenosis Surgery: Status post external fixation POD 3 PLAN: Nonweightbearing left lower extremity Ice and elevate Pin care twice daily We will plan on surgery first of next week when swelling is improved Incentive spirometry Orthopedically stable npo after MN thursday hold lovenox after thursday AM dose
[2018-05-08] MEDS: buPROPion 100 MG ER 12 HR Tablet PO SCH ×2 (09:31→21:31)
[2018-05-08] MEDS: Gabapentin 300 MG Capsule PO SCH ×3 (09:31→18:09)
[2018-05-08] MEDS: Calcium/Vitamin D 250/125 MG Tablet PO SCH ×3 (09:31→18:09)
[2018-05-08] MEDS: Senna/Docusate Sodium 8.6/50 MG Tablet PO SCH ×2 (09:31→21:28)
[2018-05-08] MEDS: Polyethylene Glycol 3350 17 GM Packet PO SCH (09:31)
[2018-05-08] MEDS: Enoxaparin Inj 30 MG/0.3 ML Syringe SQ SCH ×2 (09:48→21:31)
--- NOTE | 2018-05-08 10:01 | P.PNNS ---
Subjective Interval history: Pain down right leg *much* improved after surgery, patient very pleased Physical Exam Vital signs: Vital Signs 05/07/18 20:18 05/07/18 20:30 05/07/18 20:45 Temperature 97.6 F 97.7 F 97.7 F Pulse Rate 105 H 85 109 H Respiratory Rate 14 14 14 Blood Pressure 112/53 L 114/66 118/67 Pulse Oximetry 96 94 L 94 L 05/07/18 21:00 05/07/18 21:42 05/07/18 22:57 Temperature 97.7 F 98.2 F Pulse Rate 95 H 65 Respiratory Rate 14 14 16 Blood Pressure 98/60 L 110/62 Pulse Oximetry 92 L 95 05/08/18 00:00 05/08/18 01:32 05/08/18 04:00 Temperature 97.7 F 98.0 F Pulse Rate 88 85 Respiratory Rate 19 16 17 Blood Pressure 95/52 L 99/55 L Pulse Oximetry 98 95 05/08/18 04:24 05/08/18 05:52 05/08/18 08:50 Temperature Pulse Rate 90 Respiratory Rate 16 Blood Pressure Pulse Oximetry 97 Intake & Output 05/07/18 05/08/18 05/08/18 18:59 06:59 18:59 Intake Total 2650 / 2650 Output Total 1770 / 1770 125 / 125 Balance 880 / 880 -125 / -125 Weight 68.2 kg Intake: IV 1050 / 1050 LR 1000 mL Inj 1,000 ML @ 50 1000 / 1000 mls/hr IV.CONT .Q20H [facility] Rx#: [id number] Ancef 2 GM Premix Inj 2 gm In 50 / 50 50 ml @ 100 mls/hr IV.SIG Q8H [facility] Rx#:[id number] Anesthesia Amount 1600 / 1600 Output: Urine 125 / 125 Estimated Blood Loss 300 / 300 Urine Amount (Catheter) 1425 / 1425 Indwelling Urethral Catheter 1425 / 1425 Wound Drainage 45 / 45 # 1 Back ROBERT Drain 45 / 45 Other: Date of Last Bowel Movement 05/05/18 Narrative: A&O x 3 CN II-XII intact Motor 5/5 UE and RLE LLE NWB - Urinary Catheter Management Indwelling Urethral Catheter Cath placed during this visit: yes Reason for continuing: Acute urinary retention Insertion date: 05/05/18 Insertion time: 00:15 Assessment and Plan - Plan I again reviewed the clinical and radiological findings Cervical Spine CT 05/04/18 17:05 CONCLUSION: Negative cervical spine CT examination. Chest X-Ray 05/04/18 17:05 CONCLUSION: No acute cardiopulmonary process. Head CT 05/04/18 17:05 CONCLUSION: 1. No acute intracranial abnormalities. . Lumbar Spine CT 05/04/18 17:05 CONCLUSION: 1. Fracture at L3 including the posterior inferior left lateral aspect of the L3 vertebral body with 4 mm of retropulsion of the fragment causing impression on the anterior left side of thecal sac and left neural foramina at this level. 2. Fracturing through the left L3 pedicle and right pars interarticularis region extending into the superior aspect of the spinous processes and transverse processes bilaterally at L3. Pelvis CT 05/04/18 17:05 CONCLUSION: 1. Fractures of the right superior and inferior pubic ramus as above and nondisplaced hairline fracture of left ala. Tibia/Fibula X-Ray 05/04/18 17:05 CONCLUSION: No evidence of recent bony injury. Hip X-Ray 05/04/18 17:10 CONCLUSION: No acute fracture or dislocation at the left hip. Intrauterine device present. Right pubic rami fractures noted. Ankle CT 05/04/18 17:56 CONCLUSION: 1. Comminuted intra-articular fracture of the tibial plafond with posterior subluxation of the distal posterior aspect. Fractures extend through the medial and lateral malleoli. Ankle X-Ray 05/04/18 18:06 CONCLUSION: Comminuted fracturing of the distal tibia with anterior displacement of the talus in relationship to the main portion of the tibia. Neuro: Continue neuro checks in a serial fashion. L 3 fracture. I am concerned about her unstable loose bone fragment causing impingement on the exiting nerve root. I again recommend consideration to surgical decompression with possible arthrodesis and stabilization using pedicle screws. [place] discussed the [id number] details of the surgical procedure, its indications, alternatives, risks, and potential complications. Risks and potential complications include, but are not limited to, infection, blood loss, CSF leak, partial or complete loss of sight in one or both eyes, paresis, paralysis, permanent pain or difficulty swallowing, loss of bowel or bladder function, complications from anesthesia, blood clot, stroke, myocardial infarction, or even . The possibility of nonoperative treatment has been offered. Pulmonary: Continue aggressive pulmonary toilette, nasotracheal suction, and breathing treatments with nebulizers. Left ankle fracture. Status post open reduction and external fixation, she will need further surgery next week once her swelling has decreased Pelvic fractures non operative treatment per orthopedics daily PT and OT Renal: monitor closely urine output, BUN and creatinine Endocrine: Monitor serial Acu checks and SSI as needed in detail ID Continue to monitor for signs of infection Continue Protonix for stress ulcer prophylaxis Continue Shady hose and SCD's for DVT prophylaxis/ Lovenox Further recommendations will be provided depending on the patient's clinical evaluation and follow up studies. Pt and mother at bedside state they would like to proceed with surgery tomorrow with Dr. Cabrera. She will be made NPO. 05/08/18 pod#1 surgery w/ Dr. Cabrera to remove bone fragment, which has helped tremendously. she is very pleased. working with PT scheduled for Ortho surgery Thursday for LLE
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
--- NOTE | 2018-05-08 20:17 | US ---
EXAM DATE: 05/08/2018 8:13 PM EST AGE/SEX: 28 years / Female INDICATIONS: Right leg edema. CLINICAL DATA: This is the patient's initial encounter. Patient reports that signs and symptoms have been present for 1 day and indicates a pain score of 1/10. MEDICAL/SURGICAL HISTORY: . Asthma. ADHD. Fracture left ankle. . Open reduction and internal f ixation of left ankle. COMPARISON: No prior exams available for comparison. TECHNIQUE: Venous ultrasound of both lower extremities was performed from the inguinal ligament to t he proximal calf. Real-time, color Doppler and spectral tracing, compression and augmentation techni ques were used. FINDINGS: Normal compression of the deep venous system from the inguinal region to the proximal calf . No echogenic clot is seen. Normal response of the venous system to augmentation and respiration. CONCLUSION: Negative study. No venous thrombosis of the right lower extremity. Electronically signed by: Johnathan Aleman MD 05/08/2018 8:16 PM EST
[2018-05-09 04:38] LABS: Hematocrit 21.9 % (35.0-46.0); Hemoglobin 7.4 gm/dL (11.6-15.3)
[2018-05-09] MEDS: Pantoprazole Inj 40 MG Vial IV.PUSH SCH (06:35)
[2018-05-09] MEDS: Polyethylene Glycol 3350 17 GM Packet PO SCH (09:36)
[2018-05-09] MEDS: Gabapentin 300 MG Capsule PO SCH ×3 (09:36→18:02)
[2018-05-09] MEDS: Senna/Docusate Sodium 8.6/50 MG Tablet PO SCH ×2 (09:37→21:17)
[2018-05-09] MEDS: Calcium/Vitamin D 250/125 MG Tablet PO SCH ×3 (09:37→18:02)
[2018-05-09] MEDS: buPROPion 100 MG ER 12 HR Tablet PO SCH ×2 (09:37→21:17)
[2018-05-09] MEDS: Enoxaparin Inj 30 MG/0.3 ML Syringe SQ SCH ×2 (09:38→21:22)
[2018-05-09] MEDS ORDERED: Sodium Chlor 0.9% Inj 250 ML IV.SIG SCH (11:00)
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
[2018-05-10 05:07] LABS: Hematocrit 25.6 % (35.0-46.0); Hemoglobin 8.9 gm/dL (11.6-15.3)
[2018-05-10] MEDS: Pantoprazole Inj 40 MG Vial IV.PUSH SCH (05:17)
--- NOTE | 2018-05-10 06:41 | P.PNOP ---
Subjective Interval history: Pain controlled and doing well. External fixator and ice of her left ankle Physical Exam Vital signs: Vital Signs 05/09/18 08:00 05/09/18 12:15 05/09/18 14:19 Temperature 98.3 F 98.4 F Pulse Rate 73 106 H 89 Respiratory Rate 16 18 Blood Pressure 94/51 L 94/56 L Pulse Oximetry 96 97 05/09/18 14:45 05/09/18 16:00 05/09/18 16:16 Temperature 98.5 F 98.5 F Pulse Rate 89 81 Respiratory Rate 16 16 17 Blood Pressure 98/56 L 100/58 L Pulse Oximetry 98 95 05/09/18 19:20 05/09/18 20:00 05/10/18 00:00 Temperature 98.2 F 98.0 F Pulse Rate 86 90 87 Respiratory Rate 17 18 Blood Pressure 111/72 97/92 H Pulse Oximetry 96 97 05/10/18 04:00 05/10/18 04:20 Temperature 98.6 F Pulse Rate 85 87 Respiratory Rate 17 Blood Pressure 111/58 L Pulse Oximetry 93 L Intake & Output 05/09/18 05/09/18 05/10/18 06:59 18:59 06:59 Intake Total 500 / 500 400 / 400 900 / 900 Output Total 875 / 875 Balance -375 / -375 380 / 380 900 / 900 Weight 55.6 kg Intake: IV 100 / 100 Oral 400 / 400 900 / 900 Intake (Blood Product) Amt 400 / 400 Rbc As-3 Leukoreduced Unit 400 / 400 [id number] Output: Urine 875 / 875 Wound Drainage # 1 Back ROBERT Drain Other: # Voids 3 3 Date of Last Bowel Movement 05/05/18 05/05/18 05/05/18 # Bowel Movements 0 Narrative: Left lower extremity: External fixator in place. Pin sites are clean and dry. Continued moderate swelling of the ankle. Improvement is noted. Intact sensation in all toes and is able to move toes appropriately - Urinary Catheter Management Indwelling Urethral Catheter Cath placed during this visit: yes Reason for continuing: Acute urinary retention Insertion date: 05/05/18 Insertion time: 00:15 Results - Labs CBC & Chem 7: 05/10/18 04:09 05/08/18 04:19 Laboratory Results - last 24 hr 05/07/18 05/09/18 05/10/18 18:14 10:49 04:09 Hgb 8.9 L Hct 25.6 L MTS Gel Crossmatch See Detail See Detail Bld Prod Order Comment Cancelled Assessment and Plan - Assessment and Plan Left tibial pilon fracture Left L3 pedicle fracture/inferior corner L3 vertebral body fracture/foraminal stenosis Surgery: Status post external fixation POD 4 PLAN: Nonweightbearing left lower extremity Ice and elevate Pin care twice daily We will plan on surgery tomorrow if swelling is improved 2 doses of 15 mg torodol Incentive spirometry Orthopedically stable npo after MN hold lovenox after thursday AM dose
[2018-05-10] MEDS ORDERED: Magnesium Citrate Liq 300 ML Bottle PO ONE (07:21)
[2018-05-10] MEDS ORDERED: Enoxaparin Inj 30 MG/0.3 ML Syringe SQ ONE (10:00)
[2018-05-10] MEDS: Senna/Docusate Sodium 8.6/50 MG Tablet PO SCH ×2 (10:51→22:42)
[2018-05-10] MEDS: Gabapentin 300 MG Capsule PO SCH ×3 (10:51→17:02)
[2018-05-10] MEDS: Calcium/Vitamin D 250/125 MG Tablet PO SCH ×3 (10:51→17:02)
[2018-05-10] MEDS: buPROPion 100 MG ER 12 HR Tablet PO SCH ×2 (10:51→22:45)
[2018-05-10] MEDS: Polyethylene Glycol 3350 17 GM Packet PO SCH (10:52)
--- NOTE | 2018-05-10 12:35 | P.PNNS ---
Subjective Interval history: preoperative lumbar radicular pain improved, s/p placement of ex/fix LLE Physical Exam Vital signs: Vital Signs 05/09/18 14:19 05/09/18 14:45 05/09/18 16:00 Temperature 98.4 F 98.5 F 98.5 F Pulse Rate 89 89 81 Respiratory Rate 18 16 16 Blood Pressure 94/56 L 98/56 L 100/58 L Pulse Oximetry 97 98 95 05/09/18 16:16 05/09/18 19:20 05/09/18 20:00 Temperature 98.2 F Pulse Rate 86 90 Respiratory Rate 17 17 Blood Pressure 111/72 Pulse Oximetry 96 05/10/18 00:00 05/10/18 04:00 05/10/18 04:20 Temperature 98.0 F 98.6 F Pulse Rate 87 85 87 Respiratory Rate 18 17 Blood Pressure 97/92 H 111/58 L Pulse Oximetry 97 93 L 05/10/18 08:00 Temperature 97.1 F L Pulse Rate 75 Respiratory Rate 16 Blood Pressure 93/59 L Pulse Oximetry 94 L Intake & Output 05/09/18 05/10/18 05/10/18 18:59 06:59 18:59 Intake Total 400 / 400 900 / 900 Output Total 20 / 20 Balance 380 / 380 900 / 900 Weight 55.6 kg Intake: Oral 900 / 900 Intake (Blood Product) Amt 400 / 400 Rbc As-3 Leukoreduced Unit 400 / 400 [id number] Output: Wound Drainage # 1 Back ROBERT Drain Other: # Voids 3 Date of Last Bowel Movement 05/05/18 05/05/18 05/05/18 # Bowel Movements 0 Narrative: Awake, alert sitting up in chair TLSO in place ex/fix LLE moves RLE well - Urinary Catheter Management Indwelling Urethral Catheter Cath placed during this visit: yes Reason for continuing: Acute urinary retention Insertion date: 05/05/18 Insertion time: 00:15 Assessment and Plan - Plan s/p open reduction of L3 fracture, L3-4 laminectomy, mesiofacetectomy, foraminotomy, microsurgical resection of the disk 05/07/[address] Dr[address] Cabrera Lum[address] Spine CT 05/04/18 17:05 CONCLUSION: 1. Fracture at L3 including the posterior inferior left lateral aspect of the L3 vertebral body with 4 mm of retropulsion of the fragment causing impression on the anterior left side of thecal sac and left neural foramina at this level. 2. Fracturing through the left L3 pedicle and right pars interarticularis region extending into the superior aspect of the spinous processes and transverse processes bilaterally at L3 neuro stable, better, post op pain controlled dc ROBERT drain TLSO when out of bed cont daily Prim[place] dressing changes PT
[2018-05-10] MEDS: Ketorolac Inj 30 MG/ML (IVP) Vial IV.PUSH SCH ×2 (14:10→19:41)
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
[2018-05-10] MEDS ORDERED: Ketorolac Inj 30 MG/ML (IVP) Vial IV.PUSH ONE (22:00)
[2018-05-11] MEDS: Ketorolac Inj 30 MG/ML (IVP) Vial IV.PUSH SCH ×4 (01:03→22:00)
[2018-05-11] MEDS ORDERED: Metoprolol Tartrate 25 MG Tablet PO ONE (05:12)
[2018-05-11] MEDS ORDERED: Chlorhexidine Gluconate 2% 1 Pack (2 Cloths) TOPICAL ONE (05:12)
[2018-05-11] MEDS ORDERED: Sodium Chlor 0.9% Inj 500 ML IV.SIG SCH (06:00)
--- NOTE | 2018-05-11 06:46 | P.PNOP ---
Subjective Interval history: Resting comfortably with no new complaints Physical Exam Vital signs: Vital Signs 05/10/18 08:00 05/10/18 12:00 05/10/18 14:40 Temperature 97.1 F L 98.6 F Pulse Rate 75 85 Respiratory Rate 16 16 18 Blood Pressure 93/59 L 108/72 Pulse Oximetry 94 L 96 05/10/18 16:00 05/10/18 19:58 05/10/18 20:25 Temperature 98.6 F 98.0 F Pulse Rate 94 H 86 89 Respiratory Rate 16 17 Blood Pressure 104/61 120/59 L Pulse Oximetry 96 98 05/11/18 00:01 05/11/18 00:48 05/11/18 04:02 Temperature 98.2 F Pulse Rate 81 74 73 Respiratory Rate 17 Blood Pressure 93/52 L Pulse Oximetry 98 05/11/18 04:39 Temperature 98.3 F Pulse Rate 73 Respiratory Rate 17 Blood Pressure 101/58 L Pulse Oximetry 98 Intake & Output 05/10/18 05/10/18 05/11/18 06:59 18:59 06:59 Intake Total 900 / 900 960 / 960 480 / 480 Balance 900 / 900 960 / 960 480 / 480 Weight 55.6 kg Intake: Oral 900 / 900 960 / 960 480 / 480 Other: # Voids 3 3 2 Date of Last Bowel Movement 05/05/18 05/05/18 05/10/18 # Bowel Movements 0 0 1 Narrative: Left lower extremity: External fixator in place. Improved swelling. Intact sensation in all toes with active movement of toes both dorsally and volarly. Intact distal pulses - Urinary Catheter Management Indwelling Urethral Catheter Cath placed during this visit: yes Reason for continuing: Acute urinary retention Insertion date: 05/05/18 Insertion time: 00:15 Results - Labs CBC & Chem 7: 05/10/18 04:09 05/08/18 04:19 Laboratory Results - last 24 hr 05/07/18 18:14 MTS Gel Crossmatch See Detail Assessment and Plan - Assessment and Plan Left tibial pilon fracture Left L3 pedicle fracture/inferior corner L3 vertebral body fracture/foraminal stenosis Surgery: Status post external fixation POD 5 PLAN: Nonweightbearing left lower extremity Ice and elevate Pin care twice daily Surgery today Incentive spirometry Orthopedically stable npo hold lovenox Sign consents
[2018-05-11] MEDS: ceFAZolin 1 GM Premix Inj 1 GM/50 ML FROZ.PIGGY IV.SIG ONE ×2 (08:22→09:04)
[2018-05-11] MEDS: Bupivacaine/Epinephrine Inj 0.25% 50 ML Vial ONE ×2 (09:03→11:11)
[2018-05-11] MEDS ORDERED: Post-op Orders (for Pharmacy) OTHER STA (10:10)
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
[2018-05-11] MEDS ORDERED: fentaNYL Citrate Inj 100 MCG/2 ML Ampul ONE (10:37)
[2018-05-11] MEDS ORDERED: ceFAZolin Inj 2,000 MG in Sodium Chlor 0.9% Inj 80 ML IV.SIG SCH (11:00)
[2018-05-11] MEDS ORDERED: Vancomycin Inj 1 GM/200 ML PIGGYBACK IV.SIG SCH (11:00)
[2018-05-11] MEDS ORDERED: *morphine SULFATE 4 MG/ML PERIprocedure ONLY ONE ×2 (11:42→12:11)
--- NOTE | 2018-05-11 12:38 | XR ---
EXAM DATE: 05/11/2018 12:31 PM EST AGE/SEX: 28 years / Female INDICATIONS: ORIF left ankle. CLINICAL DATA: This is the patient's initial encounter. Patient reports that signs and symptoms have been present for 1 day and indicates a pain score of Nonresponsive. MEDICAL/SURGICAL HISTORY: None. None. COMPARISON: [facility] [place]KLE LIMITED LEFT 2V, 05/05/2018. . FINDINGS: Limited 2 projection digital examination of the left ankle reveals plate and screw fixation of the di stal tibia and medial malleolus and a single cortical screw traversing the distal fibula. Hardware is intact. Alignment is anatomic. CONCLUSION: Satisfactory operative appearance Electronically signed by: Johnathan Inman MD 05/11/2018 12:37 PM EST
[2018-05-11] MEDS: Senna/Docusate Sodium 8.6/50 MG Tablet PO SCH ×2 (12:57→20:44)
[2018-05-11] MEDS: Gabapentin 300 MG Capsule PO SCH ×3 (12:57→17:47)
[2018-05-11] MEDS: Polyethylene Glycol 3350 17 GM Packet PO SCH (12:57)
[2018-05-11] MEDS: Calcium/Vitamin D 250/125 MG Tablet PO SCH ×3 (12:57→17:47)
[2018-05-11] MEDS: buPROPion 100 MG ER 12 HR Tablet PO SCH ×2 (12:58→20:45)
[2018-05-11] MEDS: Morphine Inj 4 MG/ML Vial IV.PUSH PRN (15:21)
[2018-05-11] MEDS: ceFAZolin 2 GM Premix Inj 2 GM/50 ML PIGGYBACK IV.SIG SCH (17:46)
[2018-05-11] MEDS: Vancomycin Inj 1,000 MG in Sodium Chlor 0.9% Inj 250 ML IV.SIG SCH (20:48)
[2018-05-12] MEDS: ceFAZolin 2 GM Premix Inj 2 GM/50 ML PIGGYBACK IV.SIG SCH ×3 (00:26→16:30)
--- NOTE | 2018-05-12 06:40 | P.PNOP ---
Physical Exam Vital signs: Vital Signs 05/11/18 10:45 05/11/18 11:00 05/11/18 11:15 Temperature 97.8 F Pulse Rate 77 75 82 Respiratory Rate 15 12 18 Blood Pressure 95/54 L 96/67 L 106/71 Pulse Oximetry 98 97 96 05/11/18 11:30 05/11/18 11:45 05/11/18 12:00 Temperature 98 F Pulse Rate 73 75 82 Respiratory Rate 14 13 15 Blood Pressure 111/75 108/74 98/64 L Pulse Oximetry 95 98 98 05/11/18 12:15 05/11/18 12:56 05/11/18 16:31 Temperature 97.5 F L 98.0 F Pulse Rate 77 90 Respiratory Rate 12 20 14 Blood Pressure 104/71 112/63 Pulse Oximetry 97 95 05/11/18 20:00 05/11/18 23:24 05/12/18 00:00 Temperature 97.8 F 98.6 F Pulse Rate 110 H 104 H 107 H Respiratory Rate 18 17 Blood Pressure 99/66 L 93/50 L Pulse Oximetry 95 98 05/12/18 04:04 05/12/18 04:05 Temperature 98.0 F Pulse Rate 77 84 Respiratory Rate 18 Blood Pressure 99/59 L Pulse Oximetry 97 Intake & Output 05/11/18 05/11/18 05/12/18 06:59 18:59 06:59 Intake Total 480 / 480 900 / 900 720 / 720 Output Total 350 / 350 350 / 350 Balance 480 / 480 550 / 550 370 / 370 Weight 55.6 kg Intake: IV 200 / 200 300 / 300 Ofirmev Inj 1,000 mg In 100 ml 100 / 100 @ 0 mls/hr IV.SIG .STK-[facility] Rx#:[id number] Vancomycin Inj 1,000 MG In NS 250 / 250 Inj 250 ML @ 250 mls/hr IV.SIG Q12H [facility] Rx#:[id number] Ancef 1 GM Premix Inj 1 gm In 50 / 50 50 ml @ 0 mls/hr IV.SIG .STK- MED ONE Rx#:[id number] Ancef 2 GM Premix Inj 2 gm In 50 / 50 50 / 50 50 ml @ 100 mls/hr IV.SIG Q8H [facility] Rx#:[id number] Oral 480 / 480 500 / 500 420 / 420 Anesthesia Amount 200 / 200 Output: Urine 250 / 250 350 / 350 Estimated Blood Loss 100 / 100 Other: # Voids 2 2 1 Date of Last Bowel Movement 05/10/18 # Bowel Movements 1 0 Narrative: Left lower extremity: Splint clean dry and intact. Intact sensation in toes. Active dorsiflexion and plantar flexion of toes. No pain with Neer hip range of motion. Good capillary refill. - Urinary Catheter Management Indwelling Urethral Catheter Cath placed during this visit: yes Reason for continuing: Acute urinary retention Insertion date: 05/05/18 Insertion time: 00:15 Results - Labs CBC & Chem 7: 05/10/18 04:09 05/08/18 04:19 - Imaging Impressions Ankle X-Ray 05/11/18 00:00 CONCLUSION: Satisfactory operative appearance Assessment and Plan - Assessment and Plan Left tibial pilon fracture status post open reduction internal fixation POD 1 with removal of external fixation Left L3 pedicle fracture/inferior corner L3 vertebral body fracture/foraminal stenosis PLAN: Strict nonweightbearing left lower extremity Ice and elevate Maintain splint Incentive spirometry May resume Lovenox Case management for discharge plan. Due to lumbar injury as well as left ankle fractures discharged to a rehab is most favorable.
[2018-05-12 07:00] LABS: Baso % (Auto) 0.3 % (0.0-2.0); Eos # (Auto) 0.1 th/mm3 (0.0-0.4); Eos % (Auto) 2.2 % (0.0-4.0); Hematocrit 23.5 % (35.0-46.0); Hemoglobin 8.4 gm/dL (11.6-15.3); Lymph # (Auto) 1.4 th/mm3 (1.0-4.8); Lymph % (Auto) 30.3 % (9.0-44.0); Mean Corpuscular HGB Conc 35.6 % (32.0-36.0); Mean Corpuscular Hemoglobin 33.3 pg (27.0-34.0); Mean Corpuscular Volume 93.6 fL (80.0-100.0); Mean Platelet Volume 8.5 fL (7.0-11.0); Mono # (Auto) 0.5 th/mm3 (0.0-0.9); Mono % (Auto) 10.4 % (0.0-8.0); Neut # (Auto) 2.7 th/mm3 (1.8-7.7); Neut % (Auto) 56.8 % (16.0-70.0); Platelet Count 164 th/mm3 (150-450); Red Blood Count 2.51 mil/mm3 (4.00-5.30); Red Cell Distribution Width 14.7 % (11.6-17.2); White Blood Count 4.7 th/mm3 (4.0-11.0)
[2018-05-12 07:22] LABS: Albumin 2.4 g/dL (3.4-5.0); Anion Gap 6 meq/L (5-15); Aspartate Aminotransferase 93 U/L (15-37); Blood Urea Nitrogen 15 mg/dL (7-18); Calcium 7.8 mg/dL (8.5-10.1); Carbon Dioxide 27.1 meq/L (21.0-32.0); Chloride 107 meq/L (98-107); Glomerular Filtration Rate Greater Than 89 mL/min (>89); Glucose,Random 89 mg/dL (74-106); Sodium 140 meq/L (136-145)
[2018-05-12 07:23] LABS: Alanine Aminotransferase 67 U/L (10-53)
[2018-05-12 07:25] LABS: Alkaline Phosphatase 58 U/L (45-117); Total Protein 5.1 g/dL (6.4-8.2)
[2018-05-12] MEDS: buPROPion 100 MG ER 12 HR Tablet PO SCH ×2 (08:22→21:42)
[2018-05-12] MEDS: Calcium/Vitamin D 250/125 MG Tablet PO SCH ×3 (08:22→18:25)
[2018-05-12] MEDS: Senna/Docusate Sodium 8.6/50 MG Tablet PO SCH ×2 (08:22→21:42)
[2018-05-12] MEDS: Gabapentin 300 MG Capsule PO SCH ×3 (08:23→18:25)
[2018-05-12] MEDS: Vancomycin Inj 1,000 MG in Sodium Chlor 0.9% Inj 250 ML IV.SIG SCH (08:23)
[2018-05-12] MEDS ORDERED: Enoxaparin Inj 40 MG/0.4 ML Syringe SQ SCH (09:00)
[2018-05-12] MEDS: Polyethylene Glycol 3350 17 GM Packet PO SCH (09:00)
[2018-05-12] MEDS: Morphine Inj 4 MG/ML Vial IV.PUSH PRN ×2 (09:46→20:09)
[2018-05-12] MEDS: Enoxaparin Inj 40 MG/0.4 ML Syringe SQ SCH ×2 (10:00→21:43)
[2018-05-12] MEDS: Ketorolac Inj 30 MG/ML (IVP) Vial IV.PUSH SCH ×2 (11:46→21:43)
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
--- NOTE | 2018-05-12 16:51 | P.PNNS ---
Subjective Interval history: back pain controlled, otherwise reports to be doing well Physical Exam Vital signs: Vital Signs 05/11/18 20:00 05/11/18 23:24 05/12/18 00:00 Temperature 97.8 F 98.6 F Pulse Rate 110 H 104 H 107 H Respiratory Rate 18 17 Blood Pressure 99/66 L 93/50 L Pulse Oximetry 95 98 05/12/18 04:04 05/12/18 04:05 05/12/18 08:00 Temperature 98.0 F 98.8 F Pulse Rate 77 84 92 H Respiratory Rate 18 18 Blood Pressure 99/59 L 127/66 Pulse Oximetry 97 96 05/12/18 12:00 Temperature 97.9 F Pulse Rate 98 H Respiratory Rate 20 Blood Pressure 114/59 L Pulse Oximetry 96 Intake & Output 05/11/18 05/12/18 05/12/18 18:59 06:59 18:59 Intake Total 900 / 900 720 / 720 Output Total 350 / 350 350 / 350 475 / 475 Balance 550 / 550 370 / 370 -475 / -475 Weight 55.6 kg Intake: IV 200 / 200 300 / 300 Ofirmev Inj 1,000 mg In 100 ml 100 / 100 @ 0 mls/hr IV.SIG .STK[facility] Rx#:[id number] Vancomycin Inj 1,000 MG In NS 250 / 250 Inj 250 ML @ 250 mls/hr IV.SIG Q12H [facility] Rx#:[id number] Ancef 1 GM Premix Inj 1 gm In 50 / 50 50 ml @ 0 mls/hr IV.SIG .STK- [facility] Rx#:[id number] Ancef 2 GM Premix Inj 2 gm In 50 / 50 50 / 50 50 ml @ 100 mls/hr IV.SIG Q8H [facility] Rx#:[id number] Oral 500 / 500 420 / 420 Anesthesia Amount 200 / 200 Output: Urine 250 / 250 350 / 350 475 / 475 Estimated Blood Loss 100 / 100 Other: # Voids 2 1 # Bowel Movements 0 Narrative: wound healing well, clean and dry, [place] dressing changed - Urinary Catheter Management Indwelling Urethral Catheter Cath placed during this visit: yes Reason for continuing: Acute urinary retention Insertion date: 05/05/18 Insertion time: 00:15 Assessment and Plan - Plan s/p open reduction of L3 fracture, L3-4 laminectomy, mesiofacetectomy, foraminotomy, microsurgical resection of the disk 05/07/[address] Lum[address] Sp[address] 05/04/18 17:05 CONCLUSION: 1. Fracture at L3 including the posterior inferior left lateral aspect of the L3 vertebral body with 4 mm of retropulsion of the fragment causing impression on the anterior left side of thecal sac and left neural foramina at this level. 2. Fracturing through the left L3 pedicle and right pars interarticularis region extending into the superior aspect of the spinous processes and transverse processes bilaterally at L3 cont current care TLSO when out of bed cont daily [place] dressing changes ok to shower without dressing on, PT and rehab efforts clear to dc from NRS standpoint f/u office in 2 weeks will sign off, call prn
[2018-05-13] MEDS: ceFAZolin 2 GM Premix Inj 2 GM/50 ML PIGGYBACK IV.SIG SCH ×2 (00:03→08:39)
--- NOTE | 2018-05-13 06:39 | P.PNOP ---
Subjective Interval history: POD 2 s/p ORIF left ankle doing well. pain controlled. out of bed on own with walker Physical Exam Vital signs: Vital Signs 05/12/18 08:00 05/12/18 12:00 05/12/18 16:00 Temperature 98.8 F 97.9 F 97 F L Pulse Rate 92 H 98 H 85 Respiratory Rate 18 20 18 Blood Pressure 127/66 114/59 L 101/63 Pulse Oximetry 96 96 98 05/12/18 19:04 05/12/18 20:00 05/12/18 20:11 Temperature 98.8 F Pulse Rate 95 H Respiratory Rate 18 15 18 Blood Pressure 109/56 L Pulse Oximetry 93 L 05/13/18 00:00 05/13/18 04:00 05/13/18 05:21 Temperature 98.1 F 98.1 F Pulse Rate 85 84 Respiratory Rate 15 16 18 Blood Pressure 109/66 120/73 Pulse Oximetry 94 L 97 Intake & Output 05/12/18 05/12/18 05/13/18 06:59 18:59 06:59 Intake Total 720 / 720 100 / 100 Output Total 350 / 350 475 / 475 Balance 370 / 370 -475 / -475 100 / 100 Weight 55.6 kg Intake: IV 300 / 300 100 / 100 Vancomycin Inj 1,000 MG In NS 250 / 250 Inj 250 ML @ 250 mls/hr IV.SIG Q12H [facility] Rx#:[id number] Ancef 2 GM Premix Inj 2 gm In 50 / 50 100 / 100 50 ml @ 100 mls/hr IV.SIG Q8H [facility] Rx#:[id number] Oral 420 / 420 Output: Urine 350 / 350 475 / 475 Other: # Voids 1 # Bowel Movements 0 Narrative: LLE: +short leg splint. intact. NVI - Urinary Catheter Management Indwelling Urethral Catheter Cath placed during this visit: yes Reason for continuing: Acute urinary retention Insertion date: 05/05/18 Insertion time: 00:15 Results - Labs CBC & Chem 7: 05/12/18 06:28 05/12/18 06:28 Laboratory Results - last 24 hr 05/12/18 05/12/18 06:28 06:28 WBC 4.7 RBC 2.51 L Hgb 8.4 L Hct 23.5 L MCV 93.6 MCH 33.3 MCHC 35.6 RDW 14.7 Plt Count 164 D MPV 8.5 Neut % (Auto) 56.8 Lymph % (Auto) 30.3 [place] % (Auto) 10.4 H Eos % (Auto) 2.2 Baso % (Auto) 0.3 Neut # (Auto) 2.7 Lymph # (Auto) 1.4 [place] # (Auto) 0.5 Eos # (Auto) 0.1 Baso # (Auto) 0.0 WBC Differential . Differential Comment Auto diff final Sodium 140 Potassium 4.0 Chloride 107 Carbon Dioxide 27.1 Anion Gap 6 BUN 15 Creatinine 0.72 Estimated GFR Greater than 89 Random Glucose 89 Calcium 7.8 L Total Bilirubin 0.3 AST 93 H ALT 67 H Alkaline Phosphatase 58 Total Protein 5.1 L Albumin 2.4 L Assessment and Plan - Assessment and Plan Left tibial pilon fracture status post open reduction internal fixation with removal of external fixation - POD 2 Left L3 pedicle fracture/inferior corner L3 vertebral body fracture/foraminal stenosis PLAN: Strict nonweightbearing left lower extremity Ice and elevate Maintain splint Incentive spirometry May resume Lovenox Case management for discharge plan. Due to lumbar injury as well as left ankle fractures discharged to a rehab is most favorable. ortho cleared for discharge to rehab today f/u with Yomaira or AMAIRANI in 2 weeks [employer] Prescription Drug Monitoring Database has been queried and verified prior to prescribing the controlled substance. Acute pain exception. This patient has normal, predicted, physiological, and time limited response to an adverse mechanical stimulus associated with surgery, trauma, or acute illness as described in my notes. There is a lack of alternative treatment options other than to include the prescribed narcotic treatment for this condition.
[2018-05-13] MEDS: Gabapentin 300 MG Capsule PO SCH ×2 (08:40→13:32)
[2018-05-13] MEDS: buPROPion 100 MG ER 12 HR Tablet PO SCH (08:40)
[2018-05-13] MEDS: Senna/Docusate Sodium 8.6/50 MG Tablet PO SCH (08:40)
[2018-05-13] MEDS: Calcium/Vitamin D 250/125 MG Tablet PO SCH ×2 (08:41→13:32)
[2018-05-13] MEDS: Enoxaparin Inj 40 MG/0.4 ML Syringe SQ SCH (08:41)
[2018-05-13] MEDS: Polyethylene Glycol 3350 17 GM Packet PO SCH (08:48)
[2018-05-13 12:46] VITALS: BP 115/64; PULSE 88; RESP 17; TEMP 98.5; O2SAT 98
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
--- NOTE | 2018-05-14 21:13 | P.OP ---
Preoperative Diagnosis: L3 fracture Postoperative Diagnosis: L3 fracture Date of procedure: 05/07/18 Procedure: open reduction of L3 fracture, L3-4 laminectomy, mesiofacetectomy, foraminotomy , microsurgical resection of the disk Anesthesia: BHANU Surgeon: Zack Cabrera MD Critical Care Rn: Sruthi Alcaraz Pathology: none sent Operation and Findings: INDICATIONS FOR THE SURGICAL PROCEDURE Ms Sigala is a 28 year-old female who presented as a trauma status post with intractable mechanical back pain and clinical evidence of L4 left lower extremity radiculopathy. She has a fracture with a bone fragment extending into the neural foramina, causing severe compression opf the exiting nerve root, which correlated with her clinical symptoms. A surgical decompression was indicated The [id number] details of the procedure, indications, alternatives, risks and potential complications were fully discussed with the patient. The patient fully understood. All the questions were answered. No guarantees were given. The patient voiced requesting the procedure and provided informed consents. The patient was offered the alternative of delaying the procedure and continuing with nonsurgical management. DETAILS OF THE SURGICAL PROCEDURE After the induction of general anesthesia, endotracheal intubation was performed. A Barreto catheter, bilateral ROBERT hose and sequential compression devices were placed and kept throughout the procedure. The patient was positioned prone on a Bandar table over a Dylan frame. All pressure points were carefully padded with eggcrate mattress. The eyes were tapped shut after ointment was applied by the anesthesiologist to prevent corneal abrasion. A Gay hugger was placed over the exposed lower body to maintain control of the core body temperature. The lower lumbar region was prepped and draped in the usual sterile fashion. A spinal needle was placed for localization and an x- ray performed with a C-arm. A skin incision was made in the midline over the spinous processes L3-L4 with a #10 blade. Small subcutaneous bleeders were controlled with a bipolar and the dissection was carried out through the lumbar fascia exposing the spinous processes. A subperiostial dissection was performed with a Harden elevator and a Bovie over the L3-L4 spinous process lamina and facets. A microdiscectomy self- retaining retractor was placed on the incision and an x-ray was obtained with an instrument placed underneath the lamina of L3. At this point in the procedure the operating microscope was draped in the usual sterile fashion and brought to the field. The rest of the surgical procedure was performed using microsurgical dissection technique with exception of the closure. Once the level was confirmed, a left decompressive laminectomy was performed at L3-L4 using the TPS drill with an 4mm drill bit. A medial facetectomy was necessary, and the superior free border of the ligamentum flavum was dissected with a ligament dissector and removed with a thin footplate 2 mm Kerrison. The L4 nerve root was identified and followed towards its exit in the foramen. There was a large bone fragment detached from the inferior surface of the L3 vertebral body. It was causing instability and pressire underneath the L4 nerve root. Epidural veins located laterally to the dural sac were coagulated with a bipolar and incised with microscissors. Gentle medial retraction of the dural sac allowed inspection of the fracture. The bone fragment was carefully dissected with microdissection technique, however, the bone fragment was too large to be safely removed through the small opening. . In addition, there was a large disc protusion, contributing to the stenosis. Attempt was made to a successful decompression and to re impact the bone fragment into the vertebral body L3. This was not very successful. Using extreme care, the TPS drill was used to carefully reduce the size of the bone fragment. In addition, a 2mm and a 3mm Kerrison was used to break the bone fragment top achieve decompression of the nerve. This was very difficult. It was then necessary to further expand the foraminotomy and further expose the exiting nerve root distally. Further dissection was then necessary. Using persistent microdissection technique. the bone fragments were systematically reduced in size until they mass effect over the neural structures was relieved. There was a disk herniation. The annulus fibrosus of the disc was coagulated with the bipolar and incised with an 11 blade. The extruded disc was carefully dissected from the surrounding tissue and removed with pituitary forceps. Then , a microdiscectomy was carried out in the standard fashion using straight and up-biting pituitary forceps. A good decompression of the dural sac and nerve root was achieved. The exit of the nerve root was inspected for residual disc or bone fragments and hemostasis was secured with the bipolar. The incision was irrigated with a large amount of saline solution. A Valsalva maneuver failed to show any cerebrospinal fluid leak or bleeding. The decompression was assessed again and found to be satisfactory. The incision was then closed in layers. The fascia was closed with 0 Vicryl sutures in an interrupted fashion. The superficial fascia was closed with 0 Vicryl sutures. The fascia was infiltrated with 0.5% Marcaine with epinephrine 1:100,000 dilution. The subcutaneous tissue was irrigated then closed with 0 Vicryl and 3 -0 Vicryl. The skin was closed with 4-0 running subcuticular Vicryl. A sterile dressing was applied. At the end of the procedure, the sponge, needle and instrument counts were all correct. Estimated blood loss was less than 80 cc. No blood transfusion was given. No intraoperative complications occurred. The patient received prophylactic antibiotics. The patient was then extubated and transferred to the recovery room in stable condition.
== END 2018-05-13 16:05 ==
LOC: NEPE 16:58 → NEDA 20:53 → N06 05-05 01:59
PROVIDERS: ADMIT Surgery; ATTEND Surgery
PROC: ORIFANK (2018-05-11 08:01)